=== PATIENT | female | born 1965 | race Caucasian/White ===

== ENCOUNTER 2024-02-14 14:06 | Emergency (ER) | payer BC ==
[~2024-02-14] VITALS: Ht 154.9 cm; Wt 93.9 kg
[2024-02-14 14:39] LABS: BASOPHILS # (AUTO) 0.09 K/uL (0.00-0.20); BASOPHILS % (AUTO) 0.6 % (0.0-5.0); EOSINOPHILS # (AUTO) 0.01 K/uL (0.00-0.70); EOSINOPHILS % (AUTO) 0.1 % (0.0-8.0); HEMATOCRIT 48.7 % (36-48); IMMATURE GRANULOCYTE ABSOLUTE 0.23 K/uL (0-1); LYMPHOCYTES # (AUTO) 1.2 K/uL (1.0-4.8); LYMPHOCYTES % (AUTO) 7.6 % (21.0-51.0); MEAN CORPUSCULAR HEMOGLOBIN 27.8 pg (27.0-33.0); MEAN CORPUSCULAR HGB CONC 33.9 g/dL (32.0-36.0); MONOCYTES # (AUTO) 0.6 K/uL (0.1-1.0); MONOCYTES % (AUTO) 4.1 % (3.0-13.0); NEUTROPHILS # (AUTO) 13.3 K/uL (1.8-7.7); NEUTROPHILS % (AUTO) 86.1 % (40.0-77.0); PLATELET COUNT (AUTO) 426 K/uL (130-400); RED BLOOD CELL COUNT(AUTO) 5.94 MIL/uL (4.00-5.50); RED CELL DISTRIBUTION WIDTH 15.7 % (11.0-15.5); WHITE BLOOD COUNT (AUTO) 15.4 K/uL (4.8-10.8)
[2024-02-14 14:45] LABS: CREATININE 0.8 mg/dL (0.5-1.0); POTASSIUM 4.6 mmol/L (3.5-5.1)
[2024-02-14 15:04] LABS: INR <= 0.93 (0.85-1.15); PROTHROMBIN TIME 10.1 SEC (9.6-11.6)
[2024-02-14 15:05] LABS: PARTIAL THROMBOPLASTIN TIME 23.7 SEC (26.3-35.5)
[2024-02-14 16:00] LABS: APPEARANCE,URINE CLEAR (CLEAR); BILIRUBIN,URINE NEGATIVE (NEGATIVE); COLOR,URINE COLORLESS (YELLOW); GLUCOSE, URINE (UA) >=1000 mg/dL (NEGATIVE); KETONES,URINE 60 mg/dL (NEGATIVE); LEUKOCYTE ESTERASE ,URINE NEGATIVE Leu/uL (NEGATIVE); NITRATE,URINE NEGATIVE (NEGATIVE); OCCULT BLOOD,URINE NEGATIVE (NEGATIVE); PROTEIN,URINE NEGATIVE (NEGATIVE); UROBILINOGEN,URINE 0.2 mg/dL (0.2-1.0)
[2024-02-14 16:02] LABS: ADD UA MICROSCOPIC YES
[2024-02-14 16:05] LABS: SQUAMOUS EPITHELIAL CELL,UR RARE /HPF (0-2)
[2024-02-14] MEDS ORDERED: IOHEXOL 350 MG/ML 100ML INFUS..BTL IV ONE (16:46)
[2024-02-14] MEDS: 0.9%NACL 1000ML 1,000 ML IV ONE (17:58)
[2024-02-14] MEDS: CEFTRIAXONE 1G VIAL IVPB ONE (17:58)
[2024-02-14] MEDS ORDERED: CEPH500B PO (18:08)
[2024-02-14 18:26] VITALS: BP 121/75; PULSE 74; RESP 18; O2SAT 98
== END 2024-02-14 18:27 | disposition home or self-care (01) ==
LOC: EDH 14:06
DX: D72.829 Elevated white blood cell count, unspecified (principal); N63.20 Unspecified lump in the left breast, unspecified quadrant; I10 Essential (primary) hypertension; E11.9 Type 2 diabetes mellitus without complications; E78.00 Pure hypercholesterolemia, unspecified; J45.909 Unspecified asthma, uncomplicated; Z90.49 Acquired absence of other specified parts of digestive tract; Z90.710 Acquired absence of both cervix and uterus; Z98.890 Other specified postprocedural states; Z88.1 Allergy status to other antibiotic agents; Z88.8 Allergy status to other drugs, medicaments and biological substances
CPT/HCPCS: 99284; 96374; 71270; 71045; 84484 ×2; 80048; 85025; 85610; 85730; 81001; 36415; 93005; J7030; J0696; Q9967

== ENCOUNTER → 2024-03-30 | Outpatient (CLI) | payer BC ==
[~2024-03-30] MED LIST: CEPH500B PO
== END | disposition home or self-care (01) ==
LOC: RAH 03-10 12:08
PROVIDERS: ATTEND Nurse Practitioner Adult Health
DX: N63.12 Unspecified lump in the right breast, upper inner quadrant (principal); R59.0 Localized enlarged lymph nodes
CPT/HCPCS: 76641; 77065

== ENCOUNTER → 2024-10-20 | Outpatient (CLI) | payer BC ==
--- NOTE | 2024-10-20 10:43 | HMCIMG ---
Right BREAST ULTRASOUND: HISTORY: Family history of breast cancer COMPARISON: None FINDINGS: The breast and axilla were evaluated. No cysts or solid masses are identified. Benign-appearing axillary lymph nodes seen. Impression: Benign right breast ultrasound. Routine screening mammogram in 1 year recommended. BI-RADS: CATEGORY 1: NEGATIVE Note: A negative x-ray should not delay biopsy if a dominant or clinically suspicious mass is present, since 8-10% of cancers are not identified by mammography. Thank you for allowing me to participate in this patient's care. If I can be of further assistance, please do not hesitate to call. A negative report should not delay biopsy if a clinically suspicious mass is present. Some cancers are not identified by imaging studies.
== END | disposition home or self-care (01) ==
LOC: RAH 07:37
PROVIDERS: ATTEND Nurse Practitioner Adult Health
DX: N63.15 Unspecified lump in the right breast, overlapping quadrants (principal)
CPT/HCPCS: 76641

== ENCOUNTER → 2025-08-04 | Outpatient (CLI) | payer BC ==
[~2025-08-04] MED LIST changes: +IOHEXOL-350 75 ML VIAL IV ONE
--- NOTE | 2025-08-04 15:13 | HMCIMG ---
DIGITAL BILATERAL SCREENING MAMMOGRAM WITH TOMOSYNTHESIS Technique: The digital mammographic examination of both breasts in craniocaudal and mediolateral oblique views along with CAD was obtained. Tomosynthesis of both breasts was obtained. History: This is a 60 years year-old female 0, para 0 Ab 0 for 3D screening mammogram. Patient has no family history of breast cancer. Patient has no complaint Reference:Prior mammogram from 03/30/2024 is available.. Breast composition: Breast composition B: There are scattered areas of fibroglandular density. Finding: The digital mammographic examination of both breasts in craniocaudal and mediolateral oblique view along with CAD demonstrates both breasts to have mostly involutional fatty changes. Near the chest wall and into the anterior aspect of the right breast there is a density seen which was seen on the prior mammogram but is not completely seen.. There is no evidence of any dendriti mass, cluster microcalcification or architectural distortion. The Tomosynthesis demonstrates no other lesion seen. The retromammary fat appears to be normal. IMPRESSION: Right breast near the chest wall. There is a density seen which was partly seen on the prior study. I would recommend exaggerated cc views along with coned-down compression view and ultrasound for further workup. It is not identified on these views I would recommend MRI of breast contours for further evaluation. FINAL ASSESSMENT: ACR: BI-RAD -0. Incomplete: need additional imaging evaluation. NOTE: IF A WORK-UP OF THIS PATIENT LEADS TO A BIOPSY, PLEASE FORWARD A COPY OF THE PATHOLOGY REPORT TO OUR OFFICE REQUIRED BY [facility] EFFECTIVE JUNE 16, 1994. A NEGATIVE MAMMOGRAM SHOULD NOT PRECLUDE BIOPSY OF A CLINICALLY PALPABLE SUSPICIOUS MASS, 10% OF BREAST CANCERS ARE MAMMOGRAPHICALLY OCCULT. THIS MAMMOGRAPHY FACILITY IS FULLY ACCREDITED BY THE FOOD AND DRUG ADMINISTRATION (FDA). THANK YOU FOR THIS REFERRAL.
--- NOTE | 2025-08-04 21:12 | HMCIMG ---
EXAM CT Neck with Intravenous Contrast. CLINICAL HISTORY Localized swelling, mass and lump of skin and subcutaneous tissue. TECHNIQUE Axial CT images of the neck obtained with intravenous contrast, with sagittal and coronal reformatted images. CONTRAST Administered. COMPARISON None provided. FINDINGS Pharynx Nasopharynx, oropharynx and hypopharynx are unremarkable. Larynx Laryngeal structures including the epiglottis appear normal. Retropharyngeal Space No fluid collection or soft-tissue abnormality. Salivary Glands Parotid, submandibular and sublingual glands are normal. Lymph Nodes No significant cervical lymphadenopathy. Thyroid Normal in size and attenuation without nodules. Sinonasal Structures Mucosal thickening of the bilateral maxillary and ethmoidal sinuses. No bony erosion. Subcutaneous Soft Tissues Increased subcutaneous fat deposition in the nape of the neck; no mass or collection. Bones / Cervical Spine Severe degenerative cervical spondylosis with loss of lordosis. Grade V disc disease from C4???C5 through C7???T1 with disc???osteophyte complexes causing severe central canal stenosis at C5???C7. Right-predominant uncovertebral degeneration at C4???C5 results in right-predominant neural foraminal stenosis. Left-predominant uncovertebral degeneration at C5???C6, C6???C7 and C7???T1 causes severe left foraminal stenosis. Vascular Structures Extensive calcified atherosclerotic plaque in the left carotid bulb and proximal internal carotid artery producing subtotal luminal occlusion. Right carotid system appears preserved in calibre. Jugular veins patent. IMPRESSION * Severe multilevel cervical spondylosis with Grade V disc degeneration from C4???C5 through C7???T1, producing severe central canal stenosis at C5???C7. * Severe left foraminal stenosis at C5???C6, C6???C7 and C7???T1, and right foraminal stenosis at C4???C5, due to advanced uncovertebral and facet degeneration. * Extensive calcified atherosclerosis of the left carotid bulb and proximal ICA with subtotal luminal occlusion. * Increased subcutaneous fat deposition in the nape of the neck without focal mass. * Chronic mucosal thickening in the bilateral maxillary and ethmoidal sinuses. * No cervical mass, lymphadenopathy or acute soft-tissue abnormality. /[place]
== END | disposition home or self-care (01) ==
LOC: RAH 08:18
PROVIDERS: ATTEND Nurse Practitioner Adult Health
DX: Z12.31 Encounter for screening mammogram for malignant neoplasm of breast (principal); M47.812 Spondylosis without myelopathy or radiculopathy, cervical region; M50.83 Other cervical disc disorders, cervicothoracic region; M48.02 Spinal stenosis, cervical region; M25.78 Osteophyte, vertebrae; R92.323 Mammographic fibroglandular density, bilateral breasts; I65.22 Occlusion and stenosis of left carotid artery; J34.89 Other specified disorders of nose and nasal sinuses
CPT/HCPCS: 70491; 77067; 77063; Q9967

== ENCOUNTER → 2025-08-31 | Outpatient (CLI) | payer BC ==
--- NOTE | 2025-09-01 02:59 | HMCIMG ---
CAROTID ULTRASOUND CLINICAL HISTORY: Occlusion/stenosis. TECHNIQUE: Duplex ultrasound evaluation of the bilateral common carotid arteries (CCA), carotid bulbs, internal carotid arteries (ICA), external carotid arteries (ECA), and vertebral arteries was performed using grayscale imaging, color Doppler, and spectral Doppler analysis. COMPARISON: None. FINDINGS: Right Carotid System: Common Carotid Artery (CCA): PS 69 cm/sec Internal Carotid Artery (ICA): PS 121 cm/sec External Carotid Artery (ECA): PS 99 cm/sec ICA/CCA Ratio: 1.9 Plaque: No definite plaque visualized. Vertebral Artery: Antegrade flow, PS 39 cm/sec Left Carotid System: Common Carotid Artery (CCA): PS 78 cm/sec Carotid Bulb / Proximal ICA: Soft atherosclerotic plaque is noted involving the carotid bulb with extension into the proximal ICA. Internal Carotid Artery (ICA): PS 128 cm/sec External Carotid Artery (ECA): PS 93 cm/sec ICA/CCA Ratio: 1.6 Vertebral Artery: Antegrade flow, PS 38 cm/sec IMPRESSION: 1. Soft atherosclerotic plaque in the left carotid bulb extending into the proximal internal carotid artery, without Doppler evidence of hemodynamically significant stenosis. 2. No hemodynamically significant stenosis of the right internal carotid artery. 3. Normal antegrade flow in bilateral vertebral arteries. /[place]
== END | disposition home or self-care (01) ==
LOC: RAH 12:19
PROVIDERS: ATTEND Nurse Practitioner Adult Health
DX: I65.22 Occlusion and stenosis of left carotid artery (principal)
CPT/HCPCS: 93880

== ENCOUNTER → 2025-09-02 | Outpatient (CLI) | payer BC ==
[~2025-09-02] MED LIST changes: -IOHEXOL-350 75 ML VIAL IV ONE
--- NOTE | 2025-09-06 14:23 | HMCIMG ---
Right BREAST ULTRASOUND: Finding: Real-time examination of the [right/left] breast demonstrates homogeneous echotexture throughout the breast without evidence of focal solid or cystic masses. The chest wall at 5:00 there is a complex cyst superficial which was seen also on prior study from 03/30/2024 and appears to be a sebaceous cyst measuring 1.1 x 0.8 x 1.2 cm. IMPRESSION: There is a mucous appears to be a sebaceous cyst. Very superficial at 5:00 near the chest wall. I would recommend annual mammography with tomography. FINAL ASSESSMENT: ACR: BI-RAD- 2. Benign Finding.
--- NOTE | 2025-09-06 14:24 | HMCIMG ---
DIGITAL right DIAGNOSTIC MAMMOGRAM Technique: The digital mammographic examination of right in craniocaudal, mediolateral oblique views along with CAD was obtained. History: This is a 60 years year-old female 0, para0 Ab0 . Patient has no family history of breast cancer. Patient has no complaint Reference:Prior mammogram from 08/04/2025, prior breast ultrasound from 10/20/2024 prior mammogram from 03/30/2024, are available. Prior MRI of the breasts from 04/17/2024 is available.. Breast composition: Breast composition B: There are scattered areas of fibroglandular density. Finding: The digital mammographic examination of right breast in craniocaudal and mediolateral oblique view along with CAD demonstrates demonstrate very at the edges study with a marker in place which ultrasound demonstrate to be a sebaceous cyst.. There is no evidence of any dendritic mass, cluster microcalcification or architectural distortion. The retromammary fat appears to be normal. IMPRESSION: The density appears to be a sebaceous cyst as confirmed by ultrasound and prior study. NO RADIOGRAPHIC EVIDENCE OF MALIGNANT CHANGES. WE WOULD RECOMMEND ANNUAL FOLLOW UP WITH TOMOSYNTHESIS UNLESS OTHERWISE CLINICALLY INDICATED. FINAL ASSESSMENT: ACR: BI-RAD- 2. Benign Finding. NOTE: IF A WORK-UP OF THIS PATIENT LEADS TO A BIOPSY, PLEASE FORWARD A COPY OF THE PATHOLOGY REPORT TO OUR OFFICE REQUIRED BY [facility] EFFECTIVE JUNE 16, 1994. A NEGATIVE MAMMOGRAM SHOULD NOT PRECLUDE BIOPSY OF A CLINICALLY PALPABLE SUSPICIOUS MASS, 10% OF BREAST CANCERS ARE MAMMOGRAPHICALLY OCCULT. THIS MAMMOGRAPHY FACILITY IS FULLY ACCREDITED BY THE FOOD AND DRUG ADMINISTRATION (FDA). THANK YOU FOR THIS REFERRAL.
== END | disposition home or self-care (01) ==
LOC: RAH 09:22
PROVIDERS: ATTEND Nurse Practitioner Adult Health
DX: N60.81 Other benign mammary dysplasias of right breast (principal); R92.2 Inconclusive mammogram
CPT/HCPCS: 76641; 77065